=== PATIENT | female | born 1975 | race Asian ===

== ENCOUNTER 2020-05-08 17:12 | Inpatient (IN) | payer MEDICAID ==
[~2020-05-08] VITALS: Ht 157.5 cm; Wt 71.7 kg
[2020-05-08 17:30] VITALS: BP 145/87
--- NOTE | 2020-05-08 18:19 | Diagnostic Imaging Report ---
EXAM: XR Chest, 1 View CLINICAL HISTORY: CP TECHNIQUE: Frontal view of the chest. COMPARISON: No relevant prior studies available. FINDINGS: Lungs: Low lung volumes with bronchovascular crowding. No consolidation, pleural effusion, or pneumothorax. Pleural space: See above. Heart: Unremarkable. No cardiomegaly. Mediastinum: Unremarkable. Bones/joints: Left calcific rotator cuff tendinopathy. IMPRESSION: 1. Low lung volumes with bronchovascular crowding. 2. Otherwise no acute cardiopulmonary disease. 3. If there is continued concern, consider frontal and lateral chest radiographs or CT. 4. Left calcific rotator cuff tendinopathy.
--- NOTE | 2020-05-08 18:26 | Emergency Room Report ---
History of Present Illness General Chief Complaint: Hypertension Source: Patient Present Illness HPI 45-year-old female with past medical history of hypertension presents with chief complaint of palpitations x2 days. She states that she saw her dentist for gum irritation a week ago and was told she has "weak gums" but no infection. Today she took a Motrin and subsequently started to have palpitations that lasted "a few seconds". Denies constant chest pain, nausea, vomiting, shortness of breath, history of blood clot, hemoptysis, fevers, chills, weakness, rash or any other symptoms The patient's symptoms were gradual onset, severity was moderate, duration since 2 days. Quality: Intermittent, palpitations Past medical history: Hypertension Past surgical history: Denies Smoking: Denies Alcohol use: Denies Drug use: Denies Review of systems: CONST: No fevers or chills, No night sweats PULMONARY: No productive cough, No shortness of breath CARDIAC: No chest pain, No palpitations GI: No vomiting, No diarrhea , No melena_or_BRBPR : No dysuria, No hematuria, No discharge NEURO: No new_focal_weakness_or_numbness, No confusion, No vision changes 14 point Review of Systems is otherwise negative except per HPI Physical Exam: GENERAL: Awake_alert_ nontoxic, no acute distress Spo2 97% on RA -normal EYES: Extraocular muscles are intact. Conjunctivae clear. Lids without swelling ENT: External nose and ear normal_in_appearance. Oropharynx clear. Head_atraumatic, Moist_oral_mucosa NECK: No JVD. No meningismus. No thyromegaly. Supple. Trachea midline RESP: Normal respiratory effort. Symmetric rise. No stridor. Clear_to_auscultation_No_rales_No_wheezes CARDIAC: Tachycardic and regular rhytm. No_significant pedal edema. ABDOMEN: Soft. Nondistended. Nontender_No_rebound_or_guarding. MSK: Normal muscle tone, without rigidity. Extremities without asymmetric deformity or swelling. SKIN: Warm and dry. No visible cyanosis or pallor NEUROLOGIC: Alert, oriented x3. Motor_and_sensation_grossly_intact. No truncal ataxia. Gait_normal Psych: Normal mood and affect, normal judgment and insight - COORDINATION OF CARE Case was discussed with: Patient , Patient's Physician Any labs and imaging that were ordered were interpreted as part of the medical decision making: Medical Decision Making/Plan: Differential diagnosis includes acute myocardial infarction, acute coronary syndrome and unstable angina, pulmonary embolism, pneumothorax, pneumonia, and aortic dissection, among others. Patient is currently well appearing with tachycardia. EKG shows sinus tachycardia. No evidence of STEMI, and initial troponin is negative. Dimer was elevated therefore CT angiogram of the chest was ordered, however patient has an anaphylactic shellfish allergy/iodine allergy so was unable to receive CT angiogram of the chest to rule out PE Chest xray shows bronchovascular crowding. No evidence of pneumothorax, pneumonia, or significant pleural effusion. Labs show troponin negative x1. BNP negative. Aspirin given. Cannot rule out PE at this time. Doubt massive PE as troponin and BNP are negative. EKG shows no signs of right heart strain. Offered heparin drip with extensive time at bedside spent on risks, benefits of heparin gtt. Patient consulted with her family and is going to decline at this time The presentation is not consistent with dissection, pain is not severe, radiating to back, or tearing in nature. Has normal bilateral radial and pedal pulses. I spoke with Dr. Mccullough, and reviewed the patients presentation, workup, results, and treatment. They will admit the patient for further care and evaluation, and assume care of the patient at this time. Allergies: Coded Allergies: SHELLFISH DERIVED (Verified Allergy, Severe, Anaphylaxis, 05/08/20) COVID-19 Screening Contact w/high risk pt: No Experienced COVID-19 symptoms?: No COVID-19 Testing performed WAITER/WAITRESS HEAD: No COVID-19 Screening: Negative COVID-19 COVID-19 Testing Source: april 19 Patient History Last Menstrual Period: now Now: No Nursing Documentation-[facility] Past Medical History: No History, Except For Hx Hypertension: Yes Physical Exam Vital Signs Date Time Temp Pulse Resp B/P (MAP) Pulse Ox O2 Delivery O2 Flow Rate FiO2 05/08/20 17:17 98.4 119 16 164/96 (118) 97 Room Air Sp02 EP Interpretation: reviewed, normal Medical Decision Making Diagnostic Impression: Primary Impression: Hypertension Additional Impressions: Palpitations Diabetes EKG Diagnostic Results Troponin ordered: Yes When was troponin ordered?: May 08, 2020 DEMARIO Scribe Text 12-lead EKG (interpreted by me) Time: 1744 Indication: Rhythm analysis Tracing visualized and Interpreted by . Rhythm: Sinus tachycardia Rate: 110 bpm QTc: 473 Morphology: No_significant_ST_elevations_or_depressions, No STEMI Impression: Sinus tachycardia. No delta wave. Normal axis. Rhythm Strip Diag. Results Rhythm Strip Time: 19:25 EP Interpretation: yes Rate: 100 Rhythm: no PVC's, no ectopy - Sinus tachycardia Chest X-Ray Diagnostic Results Chest X-Ray Diagnostic Results : DEMARIO Scribe Text Chest X-Ray: Views: [ 1 ] view(s) Indication: Palpitations Findings: Normal heart size. Mediastinum normal. No infiltrate. Impression: Left calcific rotator cuff tendinopathy. The X-ray(s) were independently viewed and interpreted contemporaneously Electronically signed by , Irina Valdez, DO CT/MRI/US Diagnostic Results CT/MRI/US Diagnostic Results : Impression CT Chest no Contrast EXAM: CT Chest Without Intravenous Contrast CLINICAL HISTORY: PE TECHNIQUE: Axial computed tomography images of the chest without intravenous contrast. CTDI is 5.40 mGy and DLP is 213.90 mGy-cm. One or more of the following dose reduction techniques were used: automated exposure control, adjustment of the mA and/or kV according to patient size, use of iterative reconstruction technique. Coronal and sagittal reformatted images were created and reviewed. COMPARISON: No relevant prior studies available. FINDINGS: Lungs: Unremarkable. No mass. No consolidation. Pleural space: Unremarkable. No pneumothorax. No significant effusion. Heart: Unremarkable. No cardiomegaly. No significant pericardial effusion. Bones/joints: Unremarkable. No acute fracture. No dislocation. Soft tissues: Unremarkable. Vasculature: Unremarkable. No thoracic aortic aneurysm. Lymph nodes: Unremarkable. No enlarged lymph nodes. Liver: Ill-defined right inferior segment hepatic hypodense 1.3-1.5 cm region of uncertain significance. Other findings: No contrast seen. No acute abnormality identified. IMPRESSION: 1. No contrast seen. 2. No acute abnormality identified. 3. Recommend repeating study with pulmonary arterial phase IV contrast demonstration to evaluate for pulmonary embolism. 4. Recommend outpatient MRI liver without and with IV contrast to further characterize inferior right hepatic lobe hypodense region which is not well evaluated on this study. Reevaluation Time: 19:25 Last Vital Signs Date Time Temp Pulse Resp B/P (MAP) Pulse Ox O2 Delivery O2 Flow Rate FiO2 05/08/20 17:17 98.4 119 16 164/96 (118) 97 Room Air Status: improved Disposition: ADMITTED INPATIENT Admit Decision Time: 22:12 Condition: Stable Referrals: NON PHYSICIAN (PCP) Additional Instructions: Instructions for patient/children's nursery assistant: Follow up with your physician in 1-2 days. Follow-up with your doctor sooner if your condition requires a more timely clinical reevaluation. Return to the emergency department immediately if you feel that your condition is worsening or if you have any new or concerning symptoms. Review your discharge instructions and take any prescriptions given as instructed. [facility] PROVIDES FREE OR LOW-COST HEALTH SERVICES TO PEOPLE WHO CAN SHOW PROOF THAT THEY LIVE IN [facility]. TO FIND MORE CLINICS PARTNERED WITH [facility] TO PROVIDE SERVICE, PLEASE CALL . Irina Valdez D.O. May 08, 2020 18:26
[2020-05-08 18:38] LABS: CALCIUM 8.5 MG/DL (8.5-10.1); CREATININE 1.2 MG/DL (0.55-1.30); POTASSIUM 3.1 MMOL/L (3.5-5.1)
[2020-05-08 18:40] LABS: BASOPHILS % (AUTO) 0.8 % (0.0-2.0); EOSINOPHILS % (AUTO) 2.2 % (0.0-3.0); HEMATOCRIT 41.4 % (37.0-47.0); HEMOGLOBIN 14.1 G/DL (12.0-16.0); LYMPHOCYTES % (AUTO) 25.7 % (20.0-45.0); MEAN CORPUSCULAR VOLUME 90 FL (80-99); MONOCYTES % (AUTO) 6.7 % (1.0-10.0); NEUTROPHILS % (AUTO) 64.7 % (45.0-75.0); PLATELET COUNT 316 K/UL (150-450); RED CELL DISTRIBUTION WIDTH 12.8 % (11.6-14.8); WHITE BLOOD COUNT 9.2 K/UL (4.8-10.8)
[2020-05-08 18:48] LABS: ALBUMIN 3.7 G/DL (3.4-5.0); ALBUMIN/GLOBULIN RATIO 0.9 (1.0-2.7); BILIRUBIN,TOTAL 0.3 MG/DL (0.2-1.0)
[2020-05-08] MEDS ORDERED: Omnipaque 350 100ml vial INJ PRN (19:00)
[2020-05-08 19:39] VITALS: BP 145/80
--- NOTE | 2020-05-08 20:02 | Diagnostic Imaging Report ---
EXAM: CT Chest Without Intravenous Contrast CLINICAL HISTORY: PE TECHNIQUE: Axial computed tomography images of the chest without intravenous contrast. CTDI is 5.40 mGy and DLP is 213.90 mGy-cm. One or more of the following dose reduction techniques were used: automated exposure control, adjustment of the mA and/or kV according to patient size, use of iterative reconstruction technique. Coronal and sagittal reformatted images were created and reviewed. COMPARISON: No relevant prior studies available. FINDINGS: Lungs: Unremarkable. No mass. No consolidation. Pleural space: Unremarkable. No pneumothorax. No significant effusion. Heart: Unremarkable. No cardiomegaly. No significant pericardial effusion. Bones/joints: Unremarkable. No acute fracture. No dislocation. Soft tissues: Unremarkable. Vasculature: Unremarkable. No thoracic aortic aneurysm. Lymph nodes: Unremarkable. No enlarged lymph nodes. Liver: Ill-defined right inferior segment hepatic hypodense 1.3-1.5 cm region of uncertain significance. Other findings: No contrast seen. No acute abnormality identified. IMPRESSION: 1. No contrast seen. 2. No acute abnormality identified. 3. Recommend repeating study with pulmonary arterial phase IV contrast demonstration to evaluate for pulmonary embolism. 4. Recommend outpatient MRI liver without and with IV contrast to further characterize inferior right hepatic lobe hypodense region which is not well evaluated on this study.
[2020-05-08] MEDS ORDERED: HYDROCHLOROTHIA25 MG ORAL (20:45)
[2020-05-08] MEDS ORDERED: NORMODYNE100 MG ORAL (20:45)
[2020-05-08] MEDS ORDERED: BENAZEPRIL HCL20 MG ORAL (20:47)
[2020-05-08 20:55] VITALS: BP 151/74
[2020-05-08] MEDS ORDERED: Milk of Magnesia 30ml Ud ORAL PRN (22:15)
[2020-05-08] MEDS: LORazepam 1mg tab ORAL PRN (23:34)
[2020-05-08] MEDS: Heparin 5000 units/ml inj SUBQ SCH (23:35)
[2020-05-09] VITALS: BP 132/74
[2020-05-09 04:00] VITALS: BP 115/70
[2020-05-09 08:00] VITALS: BP 134/88
[2020-05-09] MEDS: Aspirin Baby 81mg ORAL SCH (08:19)
[2020-05-09] MEDS: Heparin 5000 units/ml inj SUBQ SCH ×2 (08:19→20:03)
[2020-05-09 09:17] LABS: ANION GAP 9 mmol/L (5-15); BLOOD UREA NITROGEN 7 mg/dL (7-18); CALCIUM 8.8 MG/DL (8.5-10.1); CARBON DIOXIDE 27 MMOL/L (21-32); CHLORIDE 102 MMOL/L (98-107); CREATININE 0.8 MG/DL (0.55-1.30); POTASSIUM 3.9 MMOL/L (3.5-5.1); SODIUM 138 MMOL/L (136-145)
[2020-05-09 09:35] LABS: CHOLESTEROL 186 MG/DL (< 200); HDL CHOLESTEROL 36 MG/DL (40-60); TRIGLYCERIDES 166 MG/DL (30-150)
--- NOTE | 2020-05-09 10:21 | History & Physical ---
History and Physical History & Physicial hp DICTATED # [id number] Brown Singh MD May 09, 2020 10:21
--- NOTE | 2020-05-09 11:00 | History and Physical Report ---
DATE OF ADMISSION: 05/08/2020 CHIEF COMPLAINT: Palpitations. HISTORY OF PRESENT ILLNESS: This is a pleasant 45-year-old [place]yanese female with history of hypertension. The patient came to the emergency room with palpitations. Apparently, she had some a gum pain and was seen by a dentist. She was not found to have any infection. She said that yesterday she started having palpitation and it continued for hours. She came to the emergency room and was admitted. There was a report that the patient had some some chest pain but she denies it. Also, she denies shortness of breath. PAST MEDICAL HISTORY: History of hypertension, but no other heart problems. No history of diabetes. No history of CVA. ALLERGIES: No known drug allergies. SOCIAL HISTORY: No history of smoking or alcohol abuse. REVIEW OF SYSTEMS: Noncontributory. PHYSICAL EXAMINATION: GENERAL: The patient is a pleasant female, in no acute distress. VITAL SIGNS: Blood pressure is 134/88, pulse 102, temperature 97.8, respiratory rate is 20. HEENT: Laurium conjunctivae. Anicteric sclerae. NECK: Supple. LUNGS: Clear to auscultation. HEART: S1, S2. Tachycardic. ABDOMEN: Soft, nontender. EXTREMITIES: No cyanosis or edema. LABORATORY FINDINGS: Chemistry panel shows a serum sodium 138, potassium 3.9, chloride 102, BUN 7, creatinine 0.8. Troponin was negative x2. TSH was 0.67. CBC shows WBC of 9200, hematocrit is 41.4, hemoglobin is 14.1, and platelet is 316,000. ASSESSMENT: This is a 45-year-old female was admitted with diagnosis of palpitations, SVT needs to be ruled out among other arrhythmia, the patient has history of hypertension, as well. PLAN: She was started on aspirin, subcutaneous heparin. There was a concern initially that the patient may pulmonary embolism but I doubt it since the patient did not have any chest pain or shortness of breath. The patient was on labetalol, which we will continue and clonidine p.r.n. was added. Cardiology consultation will be obtained. Brown Singh M.D. DR: Ramila JOB#: [id number] CC:
[2020-05-09 12:00] VITALS: BP 125/87
--- NOTE | 2020-05-09 15:21 | Cardiac Electrophysiology PN ---
Subjective Subjective [id number] Objective Last 24 Hour Vital Signs Date Time Temp Pulse Resp B/P (MAP) Pulse Ox O2 Delivery O2 Flow Rate FiO2 05/09/20 12:00 108 05/09/20 12:00 98.0 104 21 125/87 (100) 98 05/09/20 09:00 Room Air 05/09/20 08:18 102 134/88 05/09/20 08:00 97.8 101 20 134/88 (103) 100 05/09/20 08:00 99 05/09/20 04:00 97.7 92 20 115/70 (85) 97 05/09/20 04:00 82 05/09/20 00:04 94 18 125/70 95 05/09/20 00:00 97.9 94 20 132/74 (93) 95 05/09/20 00:00 88 05/08/20 23:34 98 18 115/70 95 05/08/20 23:06 Room Air 05/08/20 22:37 96 05/08/20 22:15 99 111/73 05/08/20 22:10 98.1 108 16 148/73 100 Room Air 05/08/20 20:55 98.0 112 16 151/74 100 Room Air 05/08/20 19:39 98.0 111 16 145/80 100 Room Air 05/08/20 17:30 119 16 Room Air 05/08/20 17:30 98.4 112 16 145/87 97 Room Air 05/08/20 17:17 98.4 119 16 164/96 (118) 97 Room Air Intake and Output 05/08/20 05/09/20 19:00 07:00 Intake Total 250 ml Balance 250 ml Intake Oral 250 ml # Voids 1 3 Laboratory Tests Test 05/08/20 17:43 05/09/20 08:48 05/09/20 09:40 White Blood Count 9.2 K/UL (4.8-10.8) Red Blood Count 4.60 M/UL (4.20-5.40) Hemoglobin 14.1 G/DL (12.0-16.0) Hematocrit 41.4 % (37.0-47.0) Mean Corpuscular Volume 90 FL (80-99) Mean Corpuscular Hemoglobin 30.7 PG (27.0-31.0) Mean Corpuscular Hemoglobin Concent 34.1 G/DL (32.0-36.0) Red Cell Distribution Width 12.8 % (11.6-14.8) Platelet Count 316 K/UL (150-450) Mean Platelet Volume 7.5 FL (6.5-10.1) Neutrophils (%) (Auto) 64.7 % (45.0-75.0) Lymphocytes (%) (Auto) 25.7 % (20.0-45.0) Monocytes (%) (Auto) 6.7 % (1.0-10.0) Eosinophils (%) (Auto) 2.2 % (0.0-3.0) Basophils (%) (Auto) 0.8 % (0.0-2.0) D-Dimer 0.64 mg/L FEU (0.00-0.49) H Sodium Level 134 MMOL/L (136-145) L 138 MMOL/L (136-145) Potassium Level 3.1 MMOL/L (3.5-5.1) L 3.9 MMOL/L (3.5-5.1) Chloride Level 98 MMOL/L (98-107) 102 MMOL/L (98-107) Carbon Dioxide Level 29 MMOL/L (21-32) 27 MMOL/L (21-32) Anion Gap 7 mmol/L (5-15) 9 mmol/L (5-15) Blood Urea Nitrogen 11 mg/dL (7-18) 7 mg/dL (7-18) Creatinine 1.2 MG/DL (0.55-1.30) 0.8 MG/DL (0.55-1.30) Estimat Glomerular Filtration Rate 48.2 mL/min (>60) > 60 mL/min (>60) Glucose Level 163 MG/DL (74-106) H 176 MG/DL (74-106) H Calcium Level 8.5 MG/DL (8.5-10.1) 8.8 MG/DL (8.5-10.1) Total Bilirubin 0.3 MG/DL (0.2-1.0) Aspartate Amino Transf (AST/SGOT) 20 U/L (15-37) Alanine Aminotransferase (ALT/SGPT) 31 U/L (12-78) Alkaline Phosphatase 46 U/L (46-116) Troponin I 0.000 ng/mL (0.000-0.056) 0.001 ng/mL (0.000-0.056) Pro-B-Type Natriuretic Peptide 10 pg/mL (0-125) Total Protein 7.8 G/DL (6.4-8.2) Albumin 3.7 G/DL (3.4-5.0) Globulin 4.1 g/dL Albumin/Globulin Ratio 0.9 (1.0-2.7) L Lipase 372 U/L (73-393) Human Chorionic Gonadotropin, Quant 3 mIU/mL (1-6) Hemoglobin A1c 6.3 % (4.3-6.0) H Magnesium Level 1.9 MG/DL (1.8-2.4) Triglycerides Level 166 MG/DL (30-150) H Cholesterol Level 186 MG/DL (< 200) LDL Cholesterol 125 mg/dL (<100) H HDL Cholesterol 36 MG/DL (40-60) L Cholesterol/HDL Ratio 5.2 (3.3-4.4) H Thyroid Stimulating Hormone (TSH) 0.677 uiU/mL (0.358-3.740) Arterial Blood pH 7.434 (7.350-7.450) Arterial Blood Partial Pressure CO2 37.3 mmHg (35.0-45.0) Arterial Blood Partial Pressure O2 92.9 mmHg (75.0-100.0) Arterial Blood HCO3 24.4 mmol/L (22.0-26.0) Arterial Blood Oxygen Saturation 97.2 % (95-100) Arterial Blood Base Excess 0.5 (-2-2) Sharath Test Positive Nitish Patel MD May 09, 2020 15:21
[2020-05-09 16:00] VITALS: BP 120/81
--- NOTE | 2020-05-09 16:29 | Consultation ---
DATE OF CONSULTATION: 05/09/2020 CARDIOLOGY CONSULTATION CONSULTING PHYSICIAN: Nitish Patel MD REFERRING PHYSICIAN: Brown Singh MD REASON FOR CONSULTATION: Palpitation and tachycardia. HISTORY OF PRESENT ILLNESS: Patient is a 45-year-old Egyptian lady with history of hypertension, came to emergency room with palpitation. She stated that her heart rate has been around 100 to 110. Patient also had some gum pain and was seen by a dentist and was not found to have any infection. Patient denies any history of cardiac arrhythmias like atrial fibrillation or supraventricular tachycardia. In the emergency room, patient's heart rate was around 100. Patient was admitted and a Cardiology consultation was requested. REVIEW OF SYSTEMS: Negative other than what was mentioned in the history of present illness. PAST MEDICAL HISTORY: As mentioned above. FAMILY HISTORY: Noncontributory. SOCIAL HISTORY: She lives at home. Does not smoke or drink alcohol or use any drugs. PHYSICAL EXAMINATION: VITAL SIGNS: Show blood pressure of 124/87, pulse is 108, respirations 18, and she is afebrile. HEAD AND NECK: Showed no JVD. LUNGS: Clear. CARDIOVASCULAR: Shows regular S1 and S2. Mildly tachycardic. ABDOMEN: Soft. EXTREMITIES: No pitting edema. LABORATORY DATA: Labs show white count of 9.2, hemoglobin of 14.1, hematocrit 41.5, platelet count 316. Sodium 139, potassium 3.9, BUN of 7, creatinine 0.8. Troponin is negative x2. TSH is 0.677. ASSESSMENT AND PLAN: 1. Tachycardia due to sinus tachycardia. Her episodes could be due to SVT or atrial fibrillation. Patient already ruled out for myocardial infarction. Echocardiogram showed EF of 60%. Her TSH is within normal range. Patient may benefit from a Zio patch and hopefully try to catch her arrhythmia. 2. Elevated D-dimer of 0.64. Chest CT angiogram was performed and showed normal consolidation and no acute abnormality was found. However, the chest CT was done without contrast. Patient may benefit from V/Q scan. Thank you very much for allowing me to participate in the care of this patient. Please do not hesitate to contact me for any questions regarding my evaluation. It is of note that for her hypertension, patient is labetalol 100 mg b.i.d. as well as benazepril and hydrochlorothiazide as an outpatient. We will hold off on benazepril and hydrochlorothiazide as her blood pressure is currently stable at this time. Nitish Patel M.D. DR: ALBA JOB#: [id number] CC:
[2020-05-09 20:00] VITALS: BP 137/88
[2020-05-09] MEDS: LORazepam 1mg tab ORAL PRN (20:02)
[2020-05-10] VITALS: BP 122/76
[2020-05-10 08:29] VITALS: BP 125/72
[2020-05-10] MEDS: Aspirin Baby 81mg ORAL SCH (08:48)
[2020-05-10] MEDS: Heparin 5000 units/ml inj SUBQ SCH (08:51)
[2020-05-10 12:33] VITALS: BP 130/84
--- NOTE | 2020-05-10 13:14 | General Progress Note ---
Subjective Allergies: Coded Allergies: SHELLFISH DERIVED (Verified Allergy, Severe, Anaphylaxis, 05/08/20) Subjective anxious Objective Last 24 Hour Vital Signs Date Time Temp Pulse Resp B/P (MAP) Pulse Ox O2 Delivery O2 Flow Rate FiO2 05/10/20 12:33 97.7 95 18 130/84 (99) 96 05/10/20 09:40 Room Air 05/10/20 08:49 93 138/82 05/10/20 08:29 97.3 74 18 125/72 (89) 96 95 05/10/20 08:00 93 05/10/20 03:14 73 05/10/20 00:00 97.6 89 18 122/76 (91) 97 05/10/20 00:00 79 05/09/20 21:00 Room Air 05/09/20 20:32 95 18 132/81 98 05/09/20 20:02 92 16 137/85 97 05/09/20 20:00 98.0 93 16 137/88 (104) 97 05/09/20 19:06 95 05/09/20 17:10 104 120/81 05/09/20 16:00 96.8 104 18 120/81 (94) 96 05/09/20 16:00 109 Intake and Output 05/09/20 05/10/20 19:00 07:00 Intake Total 360 ml 360 ml Balance 360 ml 360 ml Intake Oral 360 ml 360 ml # Voids 3 3 # Bowel Movements 1 Height (Feet): 5 Height (Inches): 2.00 Weight (Pounds): 158 Cardiovascular: normal rate Respiratory/Chest: lungs clear Edema: no edema noted Generalized Assessment/Plan Problem List: (1) Palpitations ICD Codes: R00.2 - Palpitations SNOMED: 10124391 (2) Diabetes ICD Codes: E11.9 - Type 2 diabetes mellitus without complications SNOMED: 60718464 (3) Hypertension ICD Codes: I10 - Essential (primary) hypertension SNOMED: 43537469 Assessment/Plan: check VQ scan Discussed with Dr Patel and swim instructor Brown Singh MD May 10, 2020 13:14
--- NOTE | 2020-05-10 14:23 | Cardiac Electrophysiology PN ---
Assessment/Plan Assessment/Plan 1. Tachycardia due to sinus tachycardia. Her episodes could be due to SVT or atrial fibrillation. Patient already ruled out for myocardial infarction. Echocardiogram showed EF of 60%. Her TSH is within normal range. Patient may benefit from a Zio patch and hopefully try to catch her arrhythmia. 2. Elevated D-dimer of 0.64. Chest CT angiogram was performed and showed no acute abnormality. However, the chest CT was done without contrast. V/Q scan pending today. Subjective Subjective No CP or SOB. Awaiting VQ scan today Objective Last 24 Hour Vital Signs Date Time Temp Pulse Resp B/P (MAP) Pulse Ox O2 Delivery O2 Flow Rate FiO2 05/10/20 12:33 97.7 95 18 130/84 (99) 96 05/10/20 12:00 93 05/10/20 09:40 Room Air 05/10/20 08:49 93 138/82 05/10/20 08:29 97.3 74 18 125/72 (89) 96 95 05/10/20 08:00 93 05/10/20 03:14 73 05/10/20 00:00 97.6 89 18 122/76 (91) 97 05/10/20 00:00 79 05/09/20 21:00 Room Air 05/09/20 20:32 95 18 132/81 98 05/09/20 20:02 92 16 137/85 97 05/09/20 20:00 98.0 93 16 137/88 (104) 97 05/09/20 19:06 95 05/09/20 17:10 104 120/81 05/09/20 16:00 96.8 104 18 120/81 (94) 96 05/09/20 16:00 109 Intake and Output 05/09/20 05/10/20 19:00 07:00 Intake Total 360 ml 360 ml Balance 360 ml 360 ml Intake Oral 360 ml 360 ml # Voids 3 3 # Bowel Movements 1 Objective HEAD AND NECK: Showed no JVD. LUNGS: Clear. CARDIOVASCULAR: Shows regular S1 and S2. Mildly tachycardic. ABDOMEN: Soft. EXTREMITIES: No pitting edema. Nitish Patel MD May 10, 2020 14:23
[2020-05-10 16:00] VITALS: BP 113/75
--- NOTE | 2020-05-10 16:55 | Diagnostic Imaging Report ---
Indications: Shortness of breath Technique: IV administration 5.5 mCi 99m technetium macroaggregated albumin. Images obtained over the lungs in multiple projections. Previously, patient inhaled 40 mCi aerosolized 99M technetium DTPA. Images obtained over the lungs in multiple projections Comparison: No comparison sonograms. Reference made to chest radiograph dated 05/08/2020 Findings: Somewhat heterogeneous tracer distribution on the perfusion images likely reflects overlying soft tissue attenuation; perfusion images appear identical to the aerosol images. No segmental or segmental perfusion defects or areas of perfusion aerosol mismatch demonstrated. Impression: Low probability of pulmonary embolus
[2020-05-10 17:48] VITALS: BP 113/75
--- NOTE | 2020-05-11 09:56 | Discharge Summary ---
Discharge Summary Discharge Summary _ DATE OF ADMISSION: 05/08/2020 DATE OF DISCHARGE: 05/10/2020 DISCHARGED BY: Dr. Singh REASON FOR ADMISSION: 45 years old female with past medical history of hypertension , presented with a chief complaint of palpitations, lasted 2 days. Patient reported seeing dentist for gum irritation a week ago , but said that she did not have any infection. Patient took Motrin and subsequently started to have palpitations. She denied chest pain, nausea, vomiting or shortness of breath. No fever or chills. Upon evaluation patient was tachycardic with heart rate 119 ; blood pressure was 164/96 Chest x-ray revealed no acute cardiopulmonary pathology . EKG revealed sinus tachycardia , no acute ischemic changes; troponin negative. Laboratory work-up revealed sodium 134 , potassium 3.1 , stable renal parameters and other electrolytes . Glucose 163. Stable LFT . No leukocytosis , stable hemoglobin and hematocrit. Patient subsequently admitted to telemetry floor for further management patient made to telemetry floor CONSULTANTS: copper flotation operator [facility]: Patient admitted to telemetry floor . Patient started on aspirin . DVT prophylaxis with subcutaneous heparin provided. Patient denied chest pain or shortness of breath. Pulse oximetry remained stable on room air. Blood pressure was managed with labetalol , clonidine was added as needed for blood pressure spikes. Potassium was replaced and remained stable. It Systems Engineer followed. D-dimer was elevated 0.[address] angiogram revealed no acute abnormality , but done without contrast . Subsequently VQ scan was done and showed low probability of pulmonary emboli. Repeated troponin was negative. Echocardiogram demonstrated preserved ejection fraction of 60% with no evidence of wall motion abnormality. Telemetry showed sinus rhythm; tachycardia resolved. TSH within normal limits. Patient was ruled out for myocardial infarction. Per copper flotation operator, patient may benefit from Zio patch to catch for arrhythmia , since sinus tachycardia could be due to SVT or atrial fibrillation. Hemoglobin A1c 6.3. Lipid panel revealed LDL 125 , triglycerides 166. No concentrated sweets, low cholesterol low fat diet provided. Patient made aware that she is prediabetic and need to follow-up with no concentrated sweet diet low cholesterol low fat diet. Patient clinically stabilized and was ready for discharge home. FINAL DIAGNOSES: Palpitation Tachycardia Hypertension Diabetes DISCHARGE MEDICATIONS: See Medication Reconciliation list. DISCHARGE INSTRUCTIONS: Patient was discharged home . Follow up with primary care provider in one week; recommended Zio patch . I have been assigned to dictate discharge summary for this account. I was not involved in the patient's management. Alexia Eagle NP May 11, 2020 09:56
--- NOTE | 2020-05-11 13:24 | Cardiology Report ---
APPROVED REPORT EXAM: Two-dimensional and M-mode echocardiogram with Doppler and color Doppler. INDICATION Palpitations M-Mode DIMENSIONS IVSd0.8 (0.7-1.1cm)Left Atrium (MM)4.0 (1.6-4.0cm) LVDd5.6 (3.5-5.6cm)Aortic Root2.6 (2.0-3.7cm) PWd0.8 (0.7-1.1cm)Aortic Cusp Exc.2.0 (1.5-2.0cm) IVSs1.6 cmEPSS0.5 (>1.0cm) LVDs3.1 (2.5-4.0cm) PWs1.5 cm <Conclusion> Normal left ventricular chamber size, systolic function and wall motion. Left ventricular ejection fraction estimated to be 65-70 %. No evidence of left ventricular hypertrophy. Anterior Echo-free space, may be due to pericardial fat or effusion. All other cardiac chamber sizes are within normal limits. Focal aortic valve sclerosis with adequate cusp excursion. Thickened mitral valve leaflets with normal excursion. Mitral annulus and aortic root calcification. Normal pulmonic valve structure. Normal tricuspid valve structure. IVC is normal in size with physiological collapse. A color flow and spectral Doppler study was performed and revealed: No aortic regurgitation. No mitral regurgitation. Mitral diastolic velocities suggest mild left ventricular diastolic dysfunction (Grade I). Trace tricuspid regurgitation. Tricuspid systolic velocities suggests peak right ventricular systolic pressure of 14 mmHg. No pulmonic regurgitation present.
--- NOTE | 2020-05-11 14:36 | Cardiology Report ---
APPROVED REPORT EKG Measurement Heart [id number] <Conclusion> Sinus tachycardia with premature atrial complexes with aberrant conduction Nonspecific T wave abnormality Abnormal ECG
== END 2020-05-10 18:00 | disposition home or self-care (01) | DRG 201 ==
LOC: EMR 18:11 → 2E 20:03 → EDBEDREQ 20:34 → 2E 05-09 01:50
DX: I48.91 Unspecified atrial fibrillation (principal); I10 Essential (primary) hypertension; R00.2 Palpitations; R00.0 Tachycardia, unspecified; E11.9 Type 2 diabetes mellitus without complications
CPT/HCPCS: 36415; 71045; 71250; 78579; 78580; 80048; 80053; 80061; 82803; 83036; 83690; 83735; 83880; 84443; 84484; 84702; 85025; 85379; 93005; 93306; 99285; A9503; J8499